=== PATIENT | male | born 1940 | race Caucasian/White ===

== ENCOUNTER 2019-03-23 09:59 | Day surgery (SDC) | payer MEDICARE ==
[2019-03-22 09:17] VITALS: BP 137/70
[2019-03-22 10:08] LABS: BASOPHILS # (AUTO) 0.04 x10^3/uL (0-0.1); BASOPHILS % (AUTO) 1 % (0-1); EOSINOPHILS # (AUTO) 0.25 x10^3/uL (0-0.4); EOSINOPHILS % (AUTO) 5 % (1-7); LYMPHOCYTES # (AUTO) 1.78 x10^3/uL (1-3.4); LYMPHOCYTES % (AUTO) 32 % (22-44); MD NO; MEAN CORPUSCULAR HEMOGLOBIN 33.2 pg (27.5-34.5); MEAN CORPUSCULAR HGB CONC 33.6 g/dL (33.2-36.2); MEAN CORPUSCULAR VOLUME 98.7 fL (81-97); MEAN PLATELET VOLUME 8.4 fL (7.4-10.4); MONOCYTES # (AUTO) 0.46 x10^3/uL (0.2-0.8); MONOCYTES % (AUTO) 8 % (2-9); NEUTROPHILS # (AUTO) 3.08 x10^3/uL (1.8-6.8); NEUTROPHILS % (AUTO) 55 % (42-75); PLATELET COUNT 236 x10^3/uL (130-400); RED BLOOD COUNT 4.51 x10^6/uL (4.38-5.82); RED CELL DISTRIBUTION WIDTH 13.7 % (9.4-14.8)
[2019-03-22 10:15] LABS: INTERNATIONAL NORMALIZED RATIO 0.96 (0.93-1.1); PROTHROMBIN TIME 10.2 Seconds (9.6-11.5)
[2019-03-22 10:19] LABS: ANION GAP 7 mmol/L (5-15); CHLORIDE 106 mmol/L (98-107)
[2019-03-22 10:22] LABS: CREATININE 1.13 mg/dL (0.7-1.3)
[~2019-03-23] VITALS: Ht 170.2 cm; Wt 76.8 kg
[~2019-03-23 09:59] MED LIST: ASPI-496 PO; ATOR10TA9 PO; CHOL200024 PO; IRBE1TAB37 PO; MULT1TAB60 PO
[2019-03-23] MEDS ORDERED: BIVALIRUDIN 250 MG ONE (11:20)
[2019-03-23] MEDS ORDERED: TICAGRELOR 90 MG TABLET ONE (11:20)
[2019-03-23] MEDS ORDERED: FENTANYL PF 100 MCG/2ML ONE (11:20)
[2019-03-23] MEDS ORDERED: LIDOCAINE-MPF 1%, 5ML ONE (11:20)
[2019-03-23] MEDS ORDERED: HEPARIN 1,000 UNITS/ML, 10ML ONE (11:20)
[2019-03-23] MEDS ORDERED: MIDAZOLAM 1 MG/ML, 5ML ONE (11:20)
[2019-03-23] MEDS ORDERED: VERAPAMIL 2.5 MG/ML, 2ML ONE (11:20)
[2019-03-23] MEDS ORDERED: LIDOCAINE 1%, 20ML ONE (11:30)
[2019-03-23] MEDS ORDERED: SODIUM CHLORIDE 0.9% 1,000 ML IV SCH (12:10)
== END 2019-03-23 15:30 | disposition home or self-care (01) ==
LOC: CACL 09:59
PROVIDERS: ATTEND Internal Medicine Cardiovascular Disease
DX: I25.810 Atherosclerosis of coronary artery bypass graft(s) without angina pectoris (principal); E78.2 Mixed hyperlipidemia; I10 Essential (primary) hypertension; F15.90 Other stimulant use, unspecified, uncomplicated; Z95.1 Presence of aortocoronary bypass graft; Z72.89 Other problems related to lifestyle; Z79.82 Long term (current) use of aspirin; Z87.891 Personal history of nicotine dependence; Z79.01 Long term (current) use of anticoagulants
CPT/HCPCS: 36415; 71046; 80048; 85025; 85610; 85730; 93459; 99156; 99157; C1760; C1769; C1894; J1644; J2250; J3010; Q9967; J0583

== ENCOUNTER → 2019-09-09 | Outpatient (CLI) | payer MEDICARE ==
[~2019-09-09] MED LIST changes: +MULT-449 PO; -MULT1TAB60 PO
[2019-09-09 15:27] LABS: INTERNATIONAL NORMALIZED RATIO 0.94 (0.93-1.1)
[2019-09-09 15:30] LABS: ALANINE AMINOTRANSFERASE 30 U/L (12-78); ANION GAP 5 mmol/L (5-15); CALCIUM 9.4 mg/dL (8.5-10.1); CHLORIDE 104 mmol/L (98-107); CREATININE 1.07 mg/dL (0.7-1.3)
[2019-09-09 15:32] LABS: ALKALINE PHOSPHATASE 70 U/L (45-117); BILIRUBIN,TOTAL 1.2 mg/dL (0.2-1.0); TOTAL PROTEIN 7.5 g/dL (6.4-8.2)
== END | disposition home or self-care (01) ==
LOC: STAR 14:08
PROVIDERS: ATTEND Surgery
DX: Z01.818 Encounter for other preprocedural examination (principal); K40.90 Unilateral inguinal hernia, without obstruction or gangrene, not specified as recurrent; I25.2 Old myocardial infarction
CPT/HCPCS: 36415; 71046; 80053; 85610; 93005

== ENCOUNTER 2019-09-13 13:04 | Day surgery (SDC) | payer MEDICARE ==
[~2019-09-13] VITALS: Ht 170.2 cm; Wt 74.0 kg
[2019-09-13] MEDS ORDERED: PROPOFOL 10 MG/ML, 20ML ONE (13:40)
[2019-09-13] MEDS ORDERED: FENTANYL PF 100 MCG/2ML ONE ×2 (13:40→16:59)
[2019-09-13] MEDS ORDERED: ROCURONIUM 10MG/ML,5ML ONE (13:40)
[2019-09-13] MEDS ORDERED: DEXAMETHASONE 4 MG/ML, 1ML ONE (13:40)
[2019-09-13] MEDS ORDERED: LIDOCAINE-MPF 2% ,5ML ONE (13:40)
[2019-09-13] MEDS ORDERED: MIDAZOLAM 1 MG/ML, 2ML ONE (13:40)
[2019-09-13] MEDS ORDERED: GLYCOPYRROLATE 0.2MG/1ML, 5ML ONE (13:40)
[2019-09-13] MEDS ORDERED: LACTATED RINGERS 1,000 ML IV SCH ×2 (13:48→20:00)
[2019-09-13 13:51] VITALS: BP 151/82
[2019-09-13] MEDS ORDERED: EPHEDRINE 50 MG/ML, 1ML IM PRN (14:00)
[2019-09-13] MEDS ORDERED: MIDAZOLAM 1 MG/ML, 2ML IV PRN (14:00)
[2019-09-13] MEDS ORDERED: ALBUTEROL/IPRATROPIUM 2.5MG/0.5MG, 3 ML NPPB PRN (14:00)
[2019-09-13] MEDS ORDERED: LABETALOL 5MG/ML, 20ML IV PRN (14:00)
[2019-09-13] MEDS ORDERED: METOCLOPRAMIDE 5 MG/ML, 2ML IVPush PRN (14:00)
[2019-09-13] MEDS ORDERED: HALOPERIDOL 5 MG/ML IV PRN (14:00)
[2019-09-13] MEDS ORDERED: HYDROmorphone 1 MG/ML, 1ML INJ IVPush PRN (14:00)
[2019-09-13] MEDS ORDERED: DIPHENHYDRAMINE 50 MG/ML, 1ML IVPush PRN ×2 (14:00→20:00)
[2019-09-13] MEDS ORDERED: CHLORHEXIDINE 15 ML UDC MM ONE (14:00)
[2019-09-13] MEDS ORDERED: ACETAMINOPHEN 325 MG TABLET PO PRN (14:00)
[2019-09-13] MEDS ORDERED: EPHEDRINE 50 MG/ML, 1ML IVPush PRN (14:00)
[2019-09-13] MEDS ORDERED: ONDANSETRON 2MG/ML, 2ML IVPush PRN ×2 (14:00→20:00)
[2019-09-13] MEDS ORDERED: DIAZEPAM 5 MG/ML, 2ML IVPush PRN (14:00)
[2019-09-13] MEDS ORDERED: HYDROcodone/APAP 7.5-325MG/15ML UDC PO PRN ×2 (14:00→20:00)
[2019-09-13] MEDS ORDERED: MEPERIDINE/PF 25MG/0.5ML IVPush PRN (14:00)
[2019-09-13] MEDS ORDERED: KETOROLAC 30 MG/1 ML IV PRN (14:00)
[2019-09-13] MEDS ORDERED: FENTANYL PF 100 MCG/2ML IV PRN (14:00)
[2019-09-13] MEDS ORDERED: LORazepam 2 MG/ML, 1ML IVPush PRN (14:00)
[2019-09-13] MEDS ORDERED: OXYcodone 5 MG/5 ML ORAL.SOL UDC PO PRN (14:00)
[2019-09-13] MEDS ORDERED: CEFAZOLIN 1,000 MG ONE (14:33)
[2019-09-13] MEDS ORDERED: LABETALOL 5MG/ML, 20ML ONE (14:33)
[2019-09-13] MEDS ORDERED: BUPIVACAINE/PF-EPI 0.5% 1:200K INFIL ONE (15:01)
[2019-09-13] MEDS ORDERED: ACETAMINOPHEN 325 MG TABLET ONE (16:47)
[2019-09-13] MEDS ORDERED: ACETAMINOPHEN 650 MG/20.3 ML UDC ONE (16:47)
[2019-09-13] MEDS ORDERED: MORPHINE SULFATE 4 MG/ML, 1ML IVPush PRN (20:00)
[2019-09-13] MEDS ORDERED: CHLORHEXIDINE 15 ML UDC ONE (22:11)
[2019-09-13] MEDS ORDERED: BUPIVACAINE/PF-EPI 0.5% 1:200K ONE (22:15)
== END 2019-09-13 22:30 | disposition home or self-care (01) ==
LOC: OUT 13:04 → 4NE 19:00 → OUT 22:30
PROVIDERS: ATTEND Surgery
DX: K40.20 Bilateral inguinal hernia, without obstruction or gangrene, not specified as recurrent (principal); Z11.59 Encounter for screening for other viral diseases; K66.0 Peritoneal adhesions (postprocedural) (postinfection); I10 Essential (primary) hypertension; I25.10 Atherosclerotic heart disease of native coronary artery without angina pectoris; E78.5 Hyperlipidemia, unspecified; Z79.82 Long term (current) use of aspirin; Z79.899 Other long term (current) drug therapy; Z95.1 Presence of aortocoronary bypass graft; Z96.653 Presence of artificial knee joint, bilateral; Z81.8 Family history of other mental and behavioral disorders; Z82.5 Family history of asthma and other chronic lower respiratory diseases
CPT/HCPCS: 36415; 49650; 87635; C1781; J0690; J1100; J2250; J2704; J3010; J7120; G0378